=== PATIENT | female | born 1990 | race African-American/Black ===

== ENCOUNTER 2019-10-16 16:35 | Emergency (ER) | payer OTHER ==
[~2019-10-16] VITALS: Ht 162.6 cm; Wt 65.0 kg
[~2019-10-16 16:35] MED LIST: FERR142T6 PO
[2019-10-16] MEDS ORDERED: ACETAMINOPHEN 500MG TABLET PO ONE (18:00)
[2019-10-16 18:26] VITALS: BP 114/78
== END 2019-10-16 18:27 | disposition home or self-care (01) ==
LOC: ER 16:35
DX: S13.4XXA Sprain of ligaments of cervical spine, initial encounter (principal); V43.62XA Car passenger injured in collision with other type car in traffic accident, initial encounter; Y93.89 Activity, other specified; Y92.410 Unspecified street and highway as the place of occurrence of the external cause
CPT/HCPCS: 99282